=== PATIENT | female | born 1965 | race Two or more races ===

== ENCOUNTER 2017-05-14 15:32 | Emergency (ER) | payer SELFPAY ==
[2017-05-14 15:50] VITALS: BP 139/66; BMI 24.9
--- NOTE | 2017-05-14 16:20 | DR.GENAD ---
HPI - PCP Primary Care Physician: [facility] IN [place] - Complaint/Symptoms Chief Complaint:: PTS DAUGHTER STATES " SHE WENT THE CLINIC AND THEY TOLD HER THAT HER BLOOD WAS LOW 5.5" - Nurses notes reviewed Nurses Notes Review: Yes - Source History Provided: Patient, Family Member - Mode of Arrival Mode of Arrival: Ambulatory - Timing Onset of Chief Complaint: 05/14/17 Came on: Gradually - Duration Duration: Constant How lon Duration: Days - Location Location: generalized - Severity Severity: Mild - Modifying Factors Worsens:: evertion - Other History Other History: Hx of anemia with treatment in past. iron PMH - PMH Past Medical History: No Past Surgical History: No - Family History History of Family Medical Conditions: No - Social History Does patient currently use any type of tobacco product: No Have you used tobacco products in the last 12 months: No Type of Tobacco Use: None Does any household member use tobacco: No Alcohol Use: None Do you use any recreational Drugs:: No Lives With: Family Lives Where: Home - infectious screening In the last 2 months have you had wt loss of >10#?: NO Have you had fever, night sweats or hemotysis?: No Have you traveled outside the country in the last 6 months?: No Isolation: Standard ROS - Review of Systems Constitutional: No Symptoms Reported Eyes: No Symptoms Reported ENTM: No Symptoms Reported Respiratoy: No Symptoms Reported Cardiovascular: No Symptoms Reported Gastrointestinal/Abdominal: No Symptoms Reported Genitourinary: No Symptoms Reported Neurological: No Symptoms Reported Musculoskeletal: No Symptoms Reported Integumentary: No Symptoms Reported Hematologic/Lymphatic: Anemia Endocrine: No Symptoms Reported Psychiatric: No Symptoms Reported All Other Systems: Reviewed and Negative PE - Vital Signs Vitals: Temperature 98.1 F Pulse Rate 84 Respiratory Rate 22 Blood Pressure 139/66 O2 Sat by Pulse Oximetry 100 - General Limitations: No Limitations General Appearance: Alert, In No Apparent Distress - Head Head Exam: Normal Inspection - Eyes Eye exam: Normal Appearance, EOMI. negative: Scleral Icterus, Conjunctival Injection - ENT ENT Exam: Normal Exam, Normal Oropharynx External Ear Exam: Normal External Inspection Mouth Exam: Normal Inspection - Neck Neck Exam: Normal Inspection, Full ROM. negative: Trachea Midline, Tenderness - Chest Chest Inspection: Normal Inspection - Respiratory Respiratory Exam: Normal Lung Sounds Bilat. negative: Accessory Muscle Use, Respiratory Distress Respiratory Exam: Bilateral Clear to Auscultation - Cardiovascular Cardiovascular Exam: Regular Rate - Extremities Extremities Exam: Normal Inspection, Full ROM - Back Back Exam: Normal Inspection, Full ROM - Neurologic Neurological Exam: Alert, Oriented X3, CN II-XII Intact - Psychiatric Psychiatric Exam: Normal Mood - Skin Skin Exam: Intact, Normal Color Course - Treatment Treatment: Long discussion with translators(daughters and Cass) about transfusions, Patient is jehovia witness and refuses Transfusion unless from daughter. Told she needs blood now and that transfusion from daughter may be possible in a few days if she is a match. Told of risk if not transfused , stroke end organ damage. As patient is aware of risk will sign out AMA and start iron po. ROR - Labs Reviewed Result Diagrams: 05/14/17 16:30 05/14/17 16:30 Laboratory: WBC 7.7 X10^3/uL (3.6-10.0) 05/14/17 16:30 RBC 4.49 X10^6/uL (3.5-5.4) 05/14/17 16:30 Hgb 5.7 g/dL (12.0-16.0) L* 05/14/17 16:30 Hct 21.5 % (36.0-47.0) L 05/14/17 16:30 MCV 48.0 fL (80.0-100.0) L 05/14/17 16:30 MCH 12.8 pg (27.0-34.0) L 05/14/17 16:30 MCHC 26.8 g/dL (33.0-35.0) L 05/14/17 16:30 RDW 21.0 % (11.6-16.5) H 05/14/17 16:30 Plt Count 334 X10^3/uL (150.0-450.0) 05/14/17 16:30 Plt Count Comment Adequate (ADEQUATE) 05/14/17 16:30 MPV 8.8 fL (7.4-11.0) 05/14/17 16:30 Neut % 52.6 % (42.0-75.0) 05/14/17 16:30 Lymph % 38.6 % (21.0-51.0) 05/14/17 16:30 Reeves % 5.8 % (0.0-13.0) 05/14/17 16:30 Eos % 2.2 % (0.9-2.9) 05/14/17 16:30 Baso % 0.8 % (0.2-1.0) 05/14/17 16:30 Neut # 4.1 x10^3/uL (2.2-4.8) 05/14/17 16:30 Lymph # 3.0 X10^3/uL (1.3-2.9) H 05/14/17 16:30 Reeves # 0.4 x10^3/uL (0.3-0.8) 05/14/17 16:30 Eos # 0.2 x10^3/uL (0.0-0.2) 05/14/17 16:30 Baso # 0.1 X10^3/uL (0.0-0.1) 05/14/17 16:30 Absolute Nucleated RBC 0.1 /100WBC 05/14/17 16:30 Total Counted 100 05/14/17 16:30 Neutrophils % (Manual) 54 % (39-76) 05/14/17 16:30 Lymphocytes % (Manual) 39 % (13-43) 05/14/17 16:30 Monocytes % (Manual) 6 % (4-9) 05/14/17 16:30 Eosinophils % (Manual) 1 % (0-6) 05/14/17 16:30 Plt Morphology Comment Normal (NORMAL) 05/14/17 16:30 RBC Morphology Abnormal (NORMAL) A 05/14/17 16:30 Hypochromasia 2+ A 05/14/17 16:30 Anisocytosis 1+ A 05/14/17 16:30 Microcytosis 2+ A 05/14/17 16:30 INR Target Range - 05/14/17 16:30 INR 1.11 (0.8-1.3) 05/14/17 16:30 Sodium 138 mmol/L (136-145) 05/14/17 16:30 Corrected Sodium TNP 05/14/17 16:30 Potassium 3.7 mmol/L (3.5-5.1) 05/14/17 16:30 Chloride 106 mmol/L (98-107) 05/14/17 16:30 Carbon Dioxide 20.5 mmol/L (21-32) L 05/14/17 16:30 BUN 12 mg/dL (7-18) 05/14/17 16:30 Creatinine 0.64 mg/dL (0.55-1.02) 05/14/17 16:30 Est GFR (MDRD) Af Amer > 60 (>60) 05/14/17 16:30 Est GFR (MDRD) Non-Af > 60 (>60) 05/14/17 16:30 Glucose 99 mg/dL (65-99) 05/14/17 16:30 Calcium 8.1 mg/dL (8.5-10.1) L 05/14/17 16:30 Blood Type O POSITIVE 05/14/17 16:30 Antibody Screen Negative 05/14/17 16:30 - Diagnosis Discharge Problem: Left against medical advice Anemia Qualifiers: Anemia type: iron deficiency Iron deficiency anemia type: unspecified iron deficiency Qualified Code(s): D50.9 - Iron deficiency anemia, unspecified - Discharge Plan Condition: Stable Prescriptions: Ferrous Sulfate [FERROUS SULFATE *] 325 mg PO BID #[id number] tab - Follow ups/Referrals Follow ups/Referrals: NFD,None [Primary Care Provider] - 3 days - Instructions
[2017-05-14 16:48] LABS: BASOPHILS # (AUTO) 0.1 X10^3/uL (0.0-0.1); BASOPHILS % (AUTO) 0.8 % (0.2-1.0); EOSINOPHILS # (AUTO) 0.2 x10^3/uL (0.0-0.2)
[2017-05-14 16:54] LABS: EOSINOPHILS % (AUTO) 2.2 % (0.9-2.9); HEMATOCRIT 21.5 % (36.0-47.0); LYMPHOCYTES % (AUTO) 38.6 % (21.0-51.0); MEAN CORPUSCULAR HEMOGLOBIN 12.8 pg (27.0-34.0); MEAN CORPUSCULAR HGB CONC 26.8 g/dL (33.0-35.0); MEAN PLATELET VOLUME 8.8 fL (7.4-11.0); MONOCYTES # (AUTO) 0.4 x10^3/uL (0.3-0.8); MONOCYTES % (AUTO) 5.8 % (0.0-13.0); NEUTROPHILS # (AUTO) 4.1 x10^3/uL (2.2-4.8); NEUTROPHILS % (AUTO) 52.6 % (42.0-75.0); PLATELET COUNT 334 X10^3/uL (150.0-450.0); RED BLOOD COUNT 4.49 X10^6/uL (3.5-5.4); WHITE BLOOD COUNT 7.7 X10^3/uL (3.6-10.0)
[2017-05-14 16:55] LABS: BLOOD UREA NITROGEN 12 mg/dL (7-18); CALCIUM 8.1 mg/dL (8.5-10.1); CARBON DIOXIDE 20.5 mmol/L (21-32); CHLORIDE 106 mmol/L (98-107); CREATININE 0.64 mg/dL (0.55-1.02); GLUCOSE 99 mg/dL (65-99); SODIUM 138 mmol/L (136-145); eGFR BLACK RACES > 60 (>60); eGFR NON BLACK RACES > 60 (>60)
[2017-05-14 17:04] LABS: HEMOGLOBIN 5.7 g/dL (12.0-16.0)
[2017-05-14 17:07] LABS: PLATELET MORPHOLOGY COMMENT NORMAL (NORMAL)
[2017-05-14 17:08] LABS: ANISOCYTOSIS 1+; HYPOCHROMASIA 2+; MICROCYTOSIS 2+
[2017-05-14] MEDS ORDERED: FERROUS SULFATE PO ONE ×2 (18:08→18:14)
== END 2017-05-14 18:23 | disposition left against medical advice (07) ==
LOC: ER 16:04 → EDBD 16:04 → ER 18:23
DX: D50.8 Other iron deficiency anemias (principal)
CPT/HCPCS: 36415; 80048; 85025; 85610; 86850; 86900; 86901; 99282; 99283